=== PATIENT | male | born 1955 | race African-American/Black ===

== ENCOUNTER 2019-01-24 08:36 | Day surgery (SDC) | payer BC, OTHER ==
[~2019-01-24] VITALS: Ht 172.7 cm; Wt 80.7 kg
[~2019-01-24 08:36] MED LIST: AMLO5TAB6 PO; HCTZ PO; HYDR25TAB PO; NS 1,000 ML IV ONE; OMEP40CA2 PO
[2019-01-24] MEDS ORDERED: PROPOFOL 200 MG/20 ML VIAL As Ordered ONE (10:33)
[2019-01-24] MEDS ORDERED: LIDOCAINE 2% INJ 100 MG/5 ML SDV (FOR ANES.) As Ordered ONE (10:33)
--- NOTE | 2019-01-24 11:13 | ROOR ---
Patient Name: Baron Browning Procedure Date: 01/24/2019 10:27 AM Date of : 1955 Age: 63 Room: [facility] Gender: Male Note Status: Finalized Procedure: Colonoscopy Indications: High risk colon cancer surveillance: Personal history of colonic polyps Providers: Tommie Browning MD Referring MD: GABRIEL FLULER MD Requesting Provider: Medicines: Monitored Anesthesia Care Complications: No immediate complications. Procedure: Pre-Anesthesia Assessment: - Prior to the procedure, a History and Physical was performed, and patient medications and allergies were reviewed. The patient is competent. The risks and benefits of the procedure and the sedation options and risks were discussed with the patient. All questions were answered and informed consent was obtained. Patient identification and proposed procedure were verified by the physician, the nurse and the anesthesiologist in the procedure room. Mental Status Examination: alert and oriented. Airway Examination: normal oropharyngeal airway and neck mobility. Respiratory Examination: clear to auscultation. CV Examination: normal. Prophylactic Antibiotics: The patient does not require prophylactic antibiotics. Prior Anticoagulants: The patient has taken no previous anticoagulant or antiplatelet agents. ASA Grade Assessment: II - A patient with mild systemic disease. After reviewing the risks and benefits, the patient was deemed in satisfactory condition to undergo the procedure. The anesthesia plan was to use monitored anesthesia care (MAC). Immediately prior to administration of medications, the patient was re-assessed for adequacy to receive sedatives. The heart rate, respiratory rate, oxygen saturations, blood pressure, adequacy of pulmonary ventilation, and response to care were monitored throughout the procedure. The physical status of the patient was re-assessed after the procedure. The Colonoscope was introduced through the anus and advanced to the cecum, identified by appendiceal orifice and ileocecal valve. The colonoscopy was performed without difficulty. The patient tolerated the procedure well. The quality of the bowel preparation was good. Findings: Hemorrhoids were found on perianal exam. Three pedunculated polyps were found in the descending colon, transverse colon and ascending colon. The polyps were 1 to 10 mm in size. These polyps were removed with a hot snare. Resection and retrieval were complete. Estimated blood loss was minimal. Non-bleeding internal hemorrhoids were found during retroflexion. The hemorrhoids were Grade II (internal hemorrhoids that prolapse but reduce spontaneously). No additional abnormalities were found on retroflexion. Impression: - Hemorrhoids found on perianal exam. - Three 1 to 10 mm polyps in the descending colon, in the transverse colon and in the ascending colon, removed with a hot snare. Resected and retrieved. - Non-bleeding internal hemorrhoids. Recommendation: - Discharge patient to home (ambulatory). - Advance diet as tolerated. - Repeat colonoscopy in 3 years for surveillance. Tommie Browning MD Tommie Browning MD 01/24/2019 11:13:08 AM Electronically signed by Tommie Browning MD Number of Addenda: 0 Note Initiated On: 01/24/2019 10:27 AM Estimated Blood Loss: Estimated blood loss was minimal.
[2019-01-24 11:30] VITALS: BP 160/95
== END 2019-01-24 11:43 | disposition home or self-care (01) ==
LOC: M OPP 08:36
PROVIDERS: ATTEND Surgery
DX: D12.4 Benign neoplasm of descending colon (principal); D12.3 Benign neoplasm of transverse colon; D12.2 Benign neoplasm of ascending colon; K64.1 Second degree hemorrhoids; Z86.010 Personal history of colon polyps

== ENCOUNTER → 2019-07-27 | Outpatient (REF) | payer OTHER ==
[~2019-07-27] MED LIST changes: -NS 1,000 ML IV ONE; -OMEP40CA2 PO; +OMEP40CA97 PO
[2019-08-03 00:07] LABS: CREATININE RANDOM URINE 115.3 mg/dL (Not Estab.); VMA CREAT RATIO RANDOM UR 2.6 mg/g Creat (0.0-6.0)
== END ==
LOC: M LAB REF 12:46
PROVIDERS: ATTEND Internal Medicine Nephrology
DX: I12.9 Hypertensive chronic kidney disease with stage 1 through stage 4 chronic kidney disease, or unspecified chronic kidney disease (principal)

== ENCOUNTER → 2019-08-09 | Outpatient (CLI) | payer BC, OTHER ==
--- NOTE | 2019-08-10 11:04 | REP ---
Clinical: Chronic renal disease . Technique: Real time dunham scale and color evaluation using curved array transducer. Findings: Bladder is normal in appearance and without wall thickening or mass lesion. Bilateral ureteral jets are identified. Prevoid bladder measures 7.1 x 8.1 x 6.8 cm (255 ml). Postvoid bladder measures 2.2 x 2.7 x 1.6 cm (6 ml). Postvoid residual equals 2%. Heterogeneous prostate gland measures 3.9 x 3.4 x 4.8 cm (33 ml). Impression: Normal bladder ultrasound. Electronically Signed by Santiago Blanton MD 08/10/2019 10:55 A
--- NOTE | 2019-08-10 11:10 | REP ---
Clinical: Hypertension and chronic medical renal disease. Technique: Ng scale and color Doppler evaluation of the kidneys and renal vasculature using curved array transducer. Findings: The kidneys are essentially normal in contour size and echogenicity and reniform shape without hydronephrosis, nephrolithiasis, cystic or renal mass lesion. Right kidney measures 10.7 x 4.9 x 4.6 cm and includes 3.8 x 3.1 x 2.8 cm peripelvic cyst. Left kidney measures 10.1 x 4.0 x 4.6 cm and includes 2.0 x 1.2 x 1.0 cm lower pole cyst. Bladder is incompletely distended and grossly normal by current evaluation. Color Doppler evaluation of the renal vasculature demonstrates normal arterial wave patterns, velocities, renal aortic ratios, resistive indices and the acceleration time. No sonographic evidence for renal arterial stenosis noted. Renal vein is patent. Right Kidney: Peak arterial velocity: 62 cm/sec . Renal aortic ratio: 1.2 . Resistive indices: 0.61 - 0.66 . Acceleration times: 0.040 - 0.048 . Left kidney: Peak arterial velocity: 58 cm/sec . Renal aortic ratio: 1.1 . Resistive indices: 0.62 - 0.71 . Acceleration times: 0.042 - 0.052 . Impression: 1. Solitary cysts noted to the bilateral kidneys. 2. No definite evidence for renal arterial stenosis. Limited evaluation of the left main renal artery at the origin due to interposed bowel gas. Electronically Signed by Santiago Blanton MD 08/10/2019 11:01 A
== END ==
LOC: M RAD 06:34
PROVIDERS: ATTEND Internal Medicine Nephrology
DX: N28.1 Cyst of kidney, acquired (principal); N18.3 Chronic kidney disease, stage 3 (moderate); I12.9 Hypertensive chronic kidney disease with stage 1 through stage 4 chronic kidney disease, or unspecified chronic kidney disease; N25.81 Secondary hyperparathyroidism of renal origin

== ENCOUNTER → 2019-08-25 | Outpatient (REF) | payer OTHER | LOC: M LAB REF 12:43 | PROVIDERS: ATTEND Internal Medicine Nephrology | DX: I12.9 Hypertensive chronic kidney disease with stage 1 through stage 4 chronic kidney disease, or unspecified chronic kidney disease (principal) ==

== ENCOUNTER → 2021-04-24 | Outpatient (CLI) | payer BC, OTHER ==
[~2021-04-24] MED LIST changes: +AMLO1TAB24 PO; -AMLO5TAB6 PO; +HYDR-3490 PO; -HYDR25TAB PO; +OMEP40CA4 PO; -OMEP40CA97 PO
--- NOTE | 2021-04-24 15:33 | REP ---
INDICATION: GROSS HEMATURIA. COMPARISON: None. TECHNIQUE: PA and lateral. FINDINGS: The lungs are marginally adequate in the degree of inflation. There is curvilinear fibrotic or atelectatic change at the left base just above the diaphragm. No pleural effusion or dense consolidation. Parenchymal mass pulmonary nodule visible. The heart is not enlarged the aorta is tortuous but without gross aneurysm. Airway is midline. There is no mediastinal or hilar contour abnormality or mass. Bony thorax shows no acute compression deformity or focal lesion. Visualized clavicles, shoulders and ribs grossly intact. No free air under the diaphragm. IMPRESSION: Some minor basilar fibroatelectatic change left base without acute cardiopulmonary change. <Electronically signed by Ramón Domingo > 04/24/21 [id number]
== END ==
LOC: M WUC 14:09
PROVIDERS: ATTEND Urology
DX: R31.0 Gross hematuria (principal)

== ENCOUNTER → 2021-04-25 | Outpatient (CLI) | payer OTHER | LOC: M LABSMTC 11:43 | PROVIDERS: ATTEND Anesthesiology | DX: Z20.828 Contact with and (suspected) exposure to other viral communicable diseases (principal); Z11.59 Encounter for screening for other viral diseases ==

== ENCOUNTER 2021-04-30 07:33 | Day surgery (SDC) | payer BC, OTHER ==
[~2021-04-30] VITALS: Ht 172.7 cm; Wt 76.1 kg
[~2021-04-30 07:33] MED LIST changes: +CIPROFLOXACIN 400 MG in IV 1 EA IV ONE
[2021-04-30] MEDS ORDERED: ONDANSETRON 4MG/2ML VIAL As Ordered ONE (08:19)
[2021-04-30] MEDS ORDERED: KETOROLAC 60MG 2ML VIAL As Ordered ONE (08:19)
[2021-04-30] MEDS ORDERED: ROCURONIUM BROMIDE 50 MG/5 ML VIAL As Ordered ONE (08:19)
[2021-04-30] MEDS ORDERED: ACETAMINOPHEN 1000MG 100ML IV BTL (OFIRMEV) (J0131 PER 10MG) As Ordered ONE (08:19)
[2021-04-30] MEDS ORDERED: dexameTHASONE 4 MG/ML 1ML VIAL (J1100 PER 1MG) As Ordered ONE (08:19)
[2021-04-30] MEDS ORDERED: SUGAMMADEX SODIUM 500 MG/5 ML VIAL (BRIDION) As Ordered ONE (08:19)
[2021-04-30] MEDS ORDERED: LIDOCAINE 2% 100MG/5ML SDV (FOR ANES.) As Ordered ONE (08:19)
[2021-04-30] MEDS ORDERED: propofoL 200 MG/20 ML VIAL As Ordered ONE (08:19)
[2021-04-30] MEDS ORDERED: fentaNYL 100 MCG/2 ML INJECTION (J3010) As Ordered ONE ×2 (08:20→11:02)
[2021-04-30] MEDS ORDERED: MIDAZOLAM INJ 2MG/2ML VIAL (J2250 PER 1MG) As Ordered ONE (08:20)
[2021-04-30] MEDS ORDERED: CONRAY-60 60% 50ML VIAL (Q9961) As Ordered ONE (10:09)
--- NOTE | 2021-04-30 11:01 | REP ---
INDICATION: BILATERAL STENT PLACEMENT. COMPARISON: None. TECHNIQUE: Five views. 26.8 seconds of fluoroscopy time is reported. FINDINGS: A sequence of 5 last image hold fluoroscopically obtained spot radiographs of the abdomen document bilateral ureteral cannulation, contrast injection, and double-pigtail stent placement. IMPRESSION: Procedural imaging. <Electronically signed by Jermain Bustillos > 04/30/21 [id number]
[2021-04-30] MEDS ORDERED: FUROSEMIDE 100MG/10ML VIAL (J1940) As Ordered ONE (11:04)
[2021-04-30] MEDS ORDERED: OXYC1TAB23 PO (11:46)
[2021-04-30] MEDS ORDERED: ONDANSETRON 4MG/2ML VIAL IV PRN (11:50)
[2021-04-30] MEDS ORDERED: MEPERIDINE INJ 25 MG/ML VIAL (J2175) IV PRN (11:50)
[2021-04-30] MEDS ORDERED: oxyCODONE 5MG TAB PO PRN (11:50)
[2021-04-30] MEDS ORDERED: PERCOCET 5MG/325MG TAB PO PRN (11:50)
[2021-04-30] MEDS ORDERED: LR 1,000 ML IV SCH (11:50)
[2021-04-30] MEDS ORDERED: fentaNYL 100 MCG/2 ML INJECTION (J3010) IV PRN (11:50)
--- NOTE | 2021-04-30 12:09 | RO ---
OPERATIVE NOTE DATE OF OPERATION: 04/30/2021 PREOPERATIVE DIAGNOSIS: Bladder tumor. POSTOPERATIVE DIAGNOSIS: Bladder tumor, prostatic urethral tumor. PROCEDURE: Cystoscopy, transurethral resection of bladder and prostatic urethral tumors (greater than 5 cm), bilateral retrograde pyelograms with intraop interpretation of images, bilateral ureteral stent placement, examination under anesthesia. SURGEON: Wesley Carrero MD OFFICE NURSE PRACTITIONER: None. ANESTHESIA: General. OPERATIVE INDICATIONS: This is a 65-year-old male who was found to have what appeared to be a bladder tumor near the triangle on office cystoscopy. He was brought to the operating room today for treatment. DESCRIPTION OF PROCEDURE: The patient was brought to the operating room and general anesthesia induced. Prophylactic antibiotics were infused. He was then placed in the dorsal lithotomy position. A bimanual digital rectal examination under anesthesia was performed. It was notable for approximately 40 gm prostate with no nodules or induration. The bladder was freely mobile. The patient was prepped and draped in usual sterile fashion. A resectoscope was inserted in the urethral meatus and advanced into the bladder using a visual obturator. Once inside the bladder it was thoroughly examined. Of note, the patient had what appeared to be tumor occupying the entire trigone and both ureteral orifices. There appeared to be more tumor at the bladder neck and inside the prostatic urethra. At this point I resected all of the tumor inside the bladder using a bipolar loop. I also had to resect over both ureteral orifices. All the tumor from the bladder was then removed using a Urovac evacuator. I cauterized the base of resection but made sure not to cauterize on top of ureteral orifices. I then obtained bilateral retrograde pyelograms and there were no filling defects. There was mild hydronephrosis. I then utilized a guidewire to advance bilateral 7-Filipino x 22-32 cm JJ ureteral stents up into the collecting systems. When the wire was removed there were adequate curls of the stents in both kidneys and in the ureters. Once I made sure all the tumor inside the bladder had been resected, I then started resecting the abnormal-appearing tissue inside the prostatic urethra. This tissue was removed using a Urovac evacuator as well. The resection area base had been cauterized using coagulation current. Of note, there was an extensive amount of tumor in both the bladder and prostatic urethra and it is possible there is still additional tumor specifically inside the prostatic urethra. Once I was satisfied with hemostasis the resectoscope was removed and 18-Filipino Noriega catheter was inserted in the bladder. The balloon was filled with 10 mL sterile water and the catheter was connected to gravity drainage. The patient was taken out of dorsal lithotomy position, awakened from anesthesia and transported to the recovery room in stable condition. ESTIMATED BLOOD LOSS: 10 mL. COMPLICATIONS: None. SPECIMEN: Bladder tumor, tumor of prostatic urethra. PLAN: The patient will follow up in the clinic in approximately one week for catheter removal and a voiding trial. We will discuss the pathology results. 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 Either way he is going to need additional treatment. We will take his stents out in a few weeks. MERLIN
[2021-04-30 14:00] VITALS: BP 133/76
== END 2021-04-30 14:27 | disposition home or self-care (01) ==
LOC: M SDC 07:33
PROVIDERS: ATTEND Urology
DX: C61 Malignant neoplasm of prostate (principal); I10 Essential (primary) hypertension; Z79.899 Other long term (current) drug therapy; Z85.51 Personal history of malignant neoplasm of bladder
CPT/HCPCS: 52240; 52332; 74420; 88305; 88307; 88341; 88342; C1769; C2617; J0131; J0744; J1100; J1885; J1940; J2250; J2405; J3010; Q9961

== ENCOUNTER → 2021-05-06 | Outpatient (CLI) | payer BC, OTHER ==
[~2021-05-06] MED LIST changes: -CIPROFLOXACIN 400 MG in IV 1 EA IV ONE; +FIRM120I5 SC; +LUPR45IN IM; +OXYC1TAB23 PO; +VITA200016 PO; +eligard SUBQ
[2021-05-06 16:18] LABS: CALCIUM LEVEL 9.3 MG/DL (8.8-10.2); CREATININE FOR GFR 2.02 MG/DL (0.70-1.30); GLOMERULAR FILTRATION RATE 35.2 (>49); POTASSIUM SERUM 4.6 MEQ/L (3.5-5.1)
== END ==
LOC: M PLALAB 11:44
PROVIDERS: ATTEND Nurse Practitioner Women's Health
DX: C61 Malignant neoplasm of prostate (principal)

== ENCOUNTER → 2021-06-03 | Outpatient (CLI) | payer BC, OTHER | LOC: M PLALAB 14:35 | PROVIDERS: ATTEND Urology | DX: C61 Malignant neoplasm of prostate (principal) ==

== ENCOUNTER 2021-07-01 15:30 | Inpatient (IN) | payer BC, OTHER ==
[~2021-07-01] VITALS: Ht 170.2 cm; Wt 66.6 kg
[~2021-07-01 15:30] MED LIST changes: -VITA200016 PO; -eligard SUBQ
[2021-07-01] MEDS ORDERED: eligard SUBQ (16:14)
[2021-07-01] MEDS ORDERED: NS 1,000 ML IV SCH (17:20)
[2021-07-01 18:24] LABS: BASO % 0.5 % (0.0-1.0); HEMATOCRIT 48.9 % (42.0-52.0); HEMOGLOBIN 16.5 g/dl (13.5-17.5); LYMPH # 0.9 10^3/uL (1.5-5.0); LYMPH % 14.1 % (24.0-44.0); MEAN CORPUSCULAR HEMOGLOBIN 31.9 pg (27.0-33.0); MEAN CORPUSCULAR HGB CONC 33.7 g/dl (32.0-36.5); MEAN CORPUSCULAR VOLUME 94.4 fl (80.0-96.0); MONO # 0.9 10^3/uL (0.0-0.8); MONO % 13.5 % (2.0-8.0); NEUTROPHILS # 4.5 10^3/uL (1.5-8.5); NEUTROPHILS % 70.5 % (36.0-66.0); PLATELET COUNT, AUTOMATED 257 10^3/uL (150-450); RED BLOOD COUNT 5.18 10^6/uL (4.30-6.10); WHITE BLOOD COUNT 6.4 10^3/uL (4.0-10.0)
[2021-07-01 18:38] LABS: ALBUMIN 3.8 GM/DL (3.2-5.2); BILIRUBIN,DIRECT 0.6 MG/DL (0.0-0.2); BILIRUBIN,TOTAL 1.9 MG/DL (0.2-1.0); CALCIUM LEVEL 10.3 MG/DL (8.8-10.2); CREATININE FOR GFR 2.91 MG/DL (0.70-1.30); GLOMERULAR FILTRATION RATE 23.1 (>49); MAGNESIUM LEVEL 2.5 MG/DL (1.8-2.4); PHOSPHORUS LEVEL 5.7 MG/DL (2.5-4.9); POTASSIUM SERUM 4.8 MEQ/L (3.5-5.1); TOTAL PROTEIN 9.2 GM/DL (6.4-8.2); URIC ACID 11.4 MG/DL (3.5-7.2)
[2021-07-01 18:45] LABS: RSV AMPLIFICATION NEGATIVE (NEGATIVE)
--- NOTE | 2021-07-01 19:24 | REPVR ---
PROCEDURE INFORMATION: Exam: CT Abdomen And Pelvis Without Contrast Exam date and time: 07/01/2021 6:37 PM Age: 65 years old Clinical indication: Other: Arf; Additional info: Renal failure TECHNIQUE: Imaging protocol: Computed tomography of the abdomen and pelvis without contrast. Radiation optimization: All CT scans at this facility use at least one of these dose optimization techniques: automated exposure control; mA and/or kV adjustment per patient size (includes targeted exams where dose is matched to clinical indication); or iterative reconstruction. COMPARISON: BLADDER (LIMITED PELVIC) US 08/09/2019 8:16 AM FINDINGS: Lungs: Bibasilar atelectasis. Liver: Normal. No mass. Gallbladder and bile ducts: Normal. No calcified stones. No ductal dilation. Pancreas: Normal. No ductal dilation. Spleen: Normal. No splenomegaly. Adrenal glands: Normal. No mass. Kidneys and ureters: 4.2 cm simple cyst right kidney. No follow-up suggested. No hydronephrosis. Stomach and bowel: Mild diverticulosis is present in the distal colon. No diverticulitis. Appendix: No evidence of appendicitis. Intraperitoneal space: Unremarkable. No free air. No significant fluid collection. Vasculature: Unremarkable. No abdominal aortic aneurysm. Lymph nodes: Unremarkable. No enlarged lymph nodes. Urinary bladder: Unremarkable as visualized. Reproductive: The prostate gland demonstrates mild hyperplasia. Bones/joints: Small sclerotic focus left 5th rib. Retrolisthesis of L5 with respect L4 and S1. Moderate to severe central spinal stenosis L4-L5. Bulging annulus L5-S1 without spinal stenosis. Soft tissues: There is a small umbilical hernia. There is no evidence of incarceration. IMPRESSION: 1. Mild prostatic hyperplasia. 2. Mild diverticulosis is present in the distal colon. No diverticulitis. 3. Simple cyst right kidney. Otherwise unremarkable. No hydronephrosis. COMMENTS: Consistent with the [place] [employer]'s Incidental Findings Committee white paper (J Am Juan Radiol 2018): Any incidental renal lesion less than 1 cm or classified as too small to characterize, or any incidental cystic renal lesion characterized as simple-appearing, is likely benign. No follow-up imaging is recommended for these lesions per consensus recommendations based on imaging criteria. Electronically signed by: Fred Forman On 07/01/2021 19:23:57 PM
[2021-07-01] MEDS: NS 1,000 ML IV SCH ×2 (19:35→23:12)
[2021-07-01] MEDS ORDERED: MAALOX 30 ML SUSP *UDC PO PRN (19:35)
[2021-07-01] MEDS ORDERED: ACETAMINOPHEN TAB 650MG DOSE (2X325MG) PO PRN (19:35)
[2021-07-01] MEDS ORDERED: MOM 30ML SUSPENSION UDC PO PRN (19:35)
--- NOTE | 2021-07-01 20:07 | HPEPDOC ---
[facility] Medical History & Physical Date of Admission Jul 01, 2021 Date of Service: Jul 01, 2021 Attending Physician: ROSETTA KELLY MD History and Physical CHIEF COMPLAINT: [65 y/o male c/o fatigue] HISTORY OF PRESENT ILLNESS: [This is a 65 y/o male with a pmh of htn, ckd3 and metastatic prostate ca who presents to the ED for evaluation of fatigue and weakness x1 month after beginning new hormonal therapy for his prostate ca as well as abnormal kidney function on lab work approx 1 week ago. Patient is somewhat agitated during my exam and provides very little history to me, thus most of the history is taken from chart and ED staff. Apparently, patient was started on leupron and firmagon for his metastatic prostate cancer and subsequently developed poor appetite. Patient has apparently not been eating and becoming increasingly weak and fatigued. Patient had an appointment with pcp approx 1 week ago where blood work was drawn showing declining kidney function, however patient did not make follow-up appointment and was told to present to the ED for evaluation. Patient tells me that he has been experiencing weakness and fatigue for approx 1 month with associated dizziness. Patient denies recent illness, fevers, chills, chest pain, sob. Patient incidentally found to be covid+ in our ED as well as have acute kidney injury. ] PAST MEDICAL HISTORY: 1. [See HPI PAST SURGICAL HISTORY: 1. [colonoscopy and polypectomy]. 2. [turp]. SOCIAL HISTORY: Tobacco use:[denies] ETOH: [denies] Illicit drug use: [denies] FAMILY HISTORY: Reviewed - none pertinent ALLERGIES: Please see below. REVIEW OF SYSTEMS: CONSTITUTIONAL: [See HPI]. HEENT: [Denies uri sx]. CARDIOVASCULAR: [Denies chest pain]. RESPIRATORY: [Denies sob]. GASTROINTESTINAL: [Denies abd pain]. GENITOURINARY: [Denies dysuria]. SKIN: [Denies rash]. MUSCULOSKELETAL: [Denies acute joint/back pain]. NEUROLOGICAL: [Denies syncope. Admits to lightheadedness]. ENDOCRINE: [Denies hx of DM]. HEMATOLOGIC/LYMPHATIC: [Denies hx of vte]. HOME MEDICATIONS: Please see below. PHYSICAL EXAMINATION: VITAL SIGNS: Please see below. GENERAL APPEARANCE: [This is a 65 y/o male who appears his stated age. Patient is laying in bed with his eyes closed and answers questions with one word answers. he does not appear to be in any acute distress]. HEENT: [No mass or lesion. Nares patent. oral mucosa dry]. CARDIOVASCULAR: [Regular rate, rhythm. no murmurs, rubs, gallops]. LUNGS: [Good air flow b/l. No wheezing, rales, rhonchi]. ABDOMEN: [Soft, nontender]. MUSCULOSKELETAL: [No joint deformity noted]. EXTREMITIES: [No pedal edema appreciated. Pulses intact. No overlying skin changes]. NEUROLOGICAL: [Speech clear. A+Ox3. No focal deficits]. PSYCHIATRIC: [Mood and affect appropriate]. LABORATORY DATA: See below. IMAGING: [CT Abd/pelvis: FINDINGS: Lungs: Bibasilar atelectasis. Liver: Normal. No mass. Gallbladder and bile ducts: Normal. No calcified stones. No ductal dilation. Pancreas: Normal. No ductal dilation. Spleen: Normal. No splenomegaly. Adrenal glands: Normal. No mass. Kidneys and ureters: 4.2 cm simple cyst right kidney. No follow-up suggested. No hydronephrosis. Stomach and bowel: Mild diverticulosis is present in the distal colon. No diverticulitis. Appendix: No evidence of appendicitis. Intraperitoneal space: Unremarkable. No free air. No significant fluid collection. Vasculature: Unremarkable. No abdominal aortic aneurysm. Lymph nodes: Unremarkable. No enlarged lymph nodes. Urinary bladder: Unremarkable as visualized. Reproductive: The prostate gland demonstrates mild hyperplasia. Bones/joints: Small sclerotic focus left 5th rib. Retrolisthesis of L5 with respect L4 and S1. Moderate to severe central spinal stenosis L4-L5. Bulging annulus L5-S1 without spinal stenosis. Soft tissues: There is a small umbilical hernia. There is no evidence of incarceration. IMPRESSION: 1. Mild prostatic hyperplasia. 2. Mild diverticulosis is present in the distal colon. No diverticulitis. 3. Simple cyst right kidney. Otherwise unremarkable. No hydronephrosis. ] MICROBIOLOGY: Please see below. ASSESSMENT: [This is a 65 y/o male with a pmh of htn, ckd3 and metastatic prostate ca who presents to the ED for evaluation of fatigue and weakness x1 month after beginning new hormonal therapy for his prostate ca as well as abnormal kidney function on lab work approx 1 week ago. Patient incidentally found to be covid+ in our ED as well as have acute kidney injury.] . PLAN: 1. [SHEILA on CKD3 - cr acutely elevated to 2.91 from baseline of around 2 - most likely pre-renal in nature d/t poor oral intake after beginning new chemotherapy regimen which is depot injectables degarelix and eligard - team can reach out to patients urologist and/or oncologist in the am if so desired for recommendations such as need for appetite stimulants. Patient follows with both specialties in house. - CT abd/pelvis negative for any obstruction - ua, urine electrolytes ordered - will give ivf overnight - repeat kidney function in the AM 2. COVID19 - incidental finding - patient having no hypoxia, - team can consider monoclonal ab infusion prior to discharge 3. Dehydration - patient has many electrolyte abnormalities such as hypercalcemia of 10.3, hyperphosphatemia of 5.7 and hypermagnesemia of 2.5 - patient also with elevated bilirubin of 1.9 and lipase of 986 - patient showing no signs or symptoms of any of these electrolyte abnormalities or abdominal pain - lab abnormalities likely d/t dehydration - will repeat in the am post iv fluid hydration 4. HTN - at the time of writing this note, med rec is yet to be completed. Will restart at home medications based on nephrotoxicity. DVT prophylaxis - heparin d/t kidney function]. Vital Signs Vital Signs Date Time Temp Pulse Resp B/P (MAP) Pulse Ox O2 Delivery O2 Flow Rate FiO2 07/01/21 15:31 97.4 65 18 137/96 (110) 96 Room Air Laboratory Data Labs 24H Laboratory Tests 2 07/01/21 17:38: Immature Granulocyte % (Auto) 1.4, Neutrophils (%) (Auto) 70.5H, Lymphocytes (%) (Auto) 14.1L, Monocytes (%) (Auto) 13.5H, Eosinophils (%) (Auto) 0.0, Basophils (%) (Auto) 0.5, Neutrophils # (Auto) 4.5, Lymphocytes # (Auto) 0.9L, Monocytes # (Auto) 0.9H, Eosinophils # (Auto) 0.0, Basophils # (Auto) 0.0, Nucleated Red Blood Cells % (auto) 0.0, Activated Partial Thromboplast Time 24.1L, Anion Gap 11, Glomerular Filtration Rate 23.1L, Osmolality 323H, Uric Acid 11.4H, Calcium Level 10.3H, Phosphorus Level 5.7H, Magnesium Level 2.5H, Total Bilirubin 1.9H, Direct Bilirubin 0.6H, Aspartate Amino Transf (AST/SGOT) 59H, Alanine Aminotransferase (ALT/SGPT) 54, Alkaline Phosphatase 43L, Total Creatine Kinase 98, Total Protein 9.2H, Albumin 3.8, Albumin/Globulin Ratio 0.7, Lipase 986H, Coronavirus (COVID-19)(PCR) POSITIVEA, Influenza Type A (RT-PCR) NEGATIVE, Influenza Type B (RT-PCR) NEGATIVE, Respiratory Syncytial Virus (PCR) NEGATIVE 07/01/21 18:07: POC Glucose (Misc Panel) 134H, POC Sodium (Misc Panel) 143, POC Potassium (Misc Panel) 4.3, POC Chloride (Misc Panel) 106, POC Total CO2 (Misc Panel) 26.0, POC Blood Urea Nitrogen (Misc Panel 73H, POC Ionized Calcium (Misc Panel) 4.6, POC Creatinine (Misc Panel) 3.2H, POC Hematocrit (Misc Panel) 50.0 CBC/BMP Laboratory Tests 07/01/21 17:38 Home Medications Scheduled Amlodipine Besylate (Amlodipine Besylate) 5 Mg Tablet, 5 MG PO DAILY Hydrochlorothiazide (Hydrochlorothiazide) 25 Mg Tablet, 12.5 MG PO DAILY Miscellaneous Medications Degarelix Acetate (Firmagon) 120 Mg Vial, 240 MG SC Leuprolide Acetate (Lupron Depot) 45 Mg Syringekit, 45 MG IM [eligard] , 45 MG SUBQ Allergies Coded Allergies: No Known Allergies (Unverified , 04/28/21) A-FIB/CHADSVASC A-FIB History Current/History of A-Fib/PAF?: No FRANK CAPUTO Jul 01, 2021 20:07
[2021-07-01 20:43] LABS: INR 0.94
[2021-07-01 20:44] LABS: PARTIAL THROMBOPLASTIN TIME 25.7 SECONDS (25.9-37.0)
[2021-07-01] MEDS: DOCUSATE SODIUM 100MG CAPSULE PO SCH (21:00)
[2021-07-01 22:30] VITALS: BP 145/65
[2021-07-01] MEDS: HEPARIN SOD (PORCINE) 5000UNITS/ML 1ML VIAL/SYRINGE SC SCH (23:11)
[2021-07-02 05:39] VITALS: BP 121/86
[2021-07-02] MEDS ORDERED: VITA200016 PO (06:27)
[2021-07-02] MEDS ORDERED: HOME MED LIST COMPLETE! XX SCH (06:30)
[2021-07-02 06:36] LABS: BASO % 0.4 % (0.0-1.0); HEMATOCRIT 44.3 % (42.0-52.0); LYMPH # 1.4 10^3/uL (1.5-5.0); LYMPH % 18.2 % (24.0-44.0); MEAN CORPUSCULAR HEMOGLOBIN 31.7 pg (27.0-33.0); MEAN CORPUSCULAR HGB CONC 33.9 g/dl (32.0-36.5); MEAN CORPUSCULAR VOLUME 93.7 fl (80.0-96.0); MONO # 1.1 10^3/uL (0.0-0.8); MONO % 14.4 % (2.0-8.0); NEUTROPHILS % 66.2 % (36.0-66.0); PLATELET COUNT, AUTOMATED 198 10^3/uL (150-450); RED BLOOD COUNT 4.73 10^6/uL (4.30-6.10); WHITE BLOOD COUNT 7.6 10^3/uL (4.0-10.0)
[2021-07-02 06:55] LABS: BILIRUBIN,TOTAL 1.5 MG/DL (0.2-1.0); CALCIUM LEVEL 9.3 MG/DL (8.8-10.2); CREATININE FOR GFR 2.51 MG/DL (0.70-1.30); GLOMERULAR FILTRATION RATE 27.4 (>49); MAGNESIUM LEVEL 2.4 MG/DL (1.8-2.4); PHOSPHORUS LEVEL 4.2 MG/DL (2.5-4.9); POTASSIUM SERUM 3.8 MEQ/L (3.5-5.1); TOTAL PROTEIN 8.1 GM/DL (6.4-8.2)
[2021-07-02 06:55] LABS: TOTAL PROTEIN,RANDOM URINE 225.6 MG/DL (0.0-12.0)
[2021-07-02] MEDS: DOCUSATE SODIUM 100MG CAPSULE PO SCH ×2 (09:00→21:15)
[2021-07-02] MEDS: HEPARIN SOD (PORCINE) 5000UNITS/ML 1ML VIAL/SYRINGE SC SCH ×3 (09:32→21:15)
--- NOTE | 2021-07-02 11:09 | IPNPDOC ---
Subjective Date Seen The patient was seen on 07/02/21. Subjective Chief Complaint/HPI Patient was seen and examined at bedside this morning. He was asked who sent him to the hospital but he refused to answer the question, and reported "everyone already asked". He was explained that this would help to treat him, or at least answer who had sent him but he refused to answer. He was asked if he had any symptoms including chest pain, palpitations, abdominal pain, nausea, vomiting, problem with urination and bowel movements, he replied " no". He was also asked if he would want monoclonal antibodies, to which he replied " no". His primary care physician, Dr. Tong, was contacted. The reason he was sent to the emergency room department was because of concerns of possible Covid and acute on chronic kidney disease. Objective Physical Examination Other physical findings General: Lying in bed, no acute distress Head/Neck/Throat: Trachea midline, mucous membranes moist Eyes: Sclera anicteric, PERRLA Thorax: Normal respiratory effort on room air, lungs clear to auscultation bi laterally, no wheezes/rales/rhonchi Cardiovascular: Normal rate, regular rhythm, normal S1, S2; no S3, S4, rubs/gallops/murmurs Abdomen: Bowel sounds present, soft/nontender/nondistended Genitourinary: No CVA tenderness, no Noriega in place Musculoskeletal: Moving all extremities, no edema Skin: Warm, dry Neurologic: AAOx3, speech fluent and goal-directed, no focal deficits, grossly intact Assessment /Plan Assessment #Acute on chronic kidney disease -Creatinine on 05/06 was 2.0 mg/dL. Likely poor po intake from prostate ca rx. -improving with IVF -Avoid nephrotoxic medications -Ct abd and and pelvis showed no obstruction #COVID-19 -No signs of respiratory depression, tolerating room air well -Patient was asked about receiving monoclonal antibodies, but he refused #Elevated lipase -Benign abdomen, low suspicion for pancreatitis. This can be seen in the setting of Covid. -We will continue to trend #Transaminitis -Slight elevation in his AST and alkaline phosphatase. This can also be due to COVID-19. -Can have liver u/s as outpatient #Prostate carcinoma -Continued management as an outpatient with primary oncologist #Hypertension -Blood pressure at this time is acceptable. If required will continue ambulatory amlodipine. Hold hydrochlorothiazide in the setting of acute renal failure #Electrolyte abnormalities -Hypokalemia likely due to IV fluids -Calcium, phosphorus, and magnesium are all within normal limits #DVT prophylaxis -Hep subq. Plan/VTE VTE Prophylaxis Ordered?: Yes VS, I&O, 24H, Fishbone Vital Signs/I&O Vital Signs Date Time Temp Pulse Resp B/P (MAP) Pulse Ox O2 Delivery O2 Flow Rate FiO2 07/02/21 05:39 98.4 72 18 121/86 (98) 94 Room Air I&O- Last 24 Hours up to 6 AM 07/02/21 06:00 Intake Total 260 ml Output Total 150 ml Balance 110 ml Laboratory Data 24H LABS Laboratory Tests 2 07/01/21 17:38: Immature Granulocyte % (Auto) 1.4, Neutrophils (%) (Auto) 70.5H, Lymphocytes (%) (Auto) 14.1L, Monocytes (%) (Auto) 13.5H, Eosinophils (%) (Auto) 0.0, Basophils (%) (Auto) 0.5, Neutrophils # (Auto) 4.5, Lymphocytes # (Auto) 0.9L, Monocytes # (Auto) 0.9H, Eosinophils # (Auto) 0.0, Basophils # (Auto) 0.0, Nucleated Red Blood Cells % (auto) 0.0, Activated Partial Thromboplast Time 24.1L, Anion Gap 11, Glomerular Filtration Rate 23.1L, Osmolality 323H, Uric Acid 11.4H, Calcium Level 10.3H, Phosphorus Level 5.7H, Magnesium Level 2.5H, Total Bilirubin 1.9H, Direct Bilirubin 0.6H, Aspartate Amino Transf (AST/SGOT) 59H, Alanine Amino transferase (ALT/SGPT) 54, Alkaline Phosphatase 43L, Total Creatine Kinase 98, Total Protein 9.2H, Albumin 3.8, Albumin/Globulin Ratio 0.7, Lipase 986H, Coronavirus (COVID-19)(PCR) POSITIVEA, Influenza Type A (RT-PCR) NEGATIVE, Influenza Type B (RT-PCR) NEGATIVE, Respiratory Syncytial Virus (PCR) NEGATIVE 07/01/21 18:07: POC Glucose (Misc Panel) 134H, POC Sodium (Misc Panel) 143, POC Potassium (Misc Panel) 4.3, POC Chloride (Misc Panel) 106, POC Total CO2 (Misc Panel) 26.0, POC Blood Urea Nitrogen (Misc Panel 73H, POC Ionized Calcium (Misc Panel) 4.6, POC Creatinine (Misc Panel) 3.2H, POC Hematocrit (Misc Panel) 50.0 07/01/21 20:19: Activated Partial Thromboplast Time 25.7, Prothrombin Time 13.0, Prothromb Time International Ratio 0.94 07/02/21 05:36: Urine Osmolality 619, Urine Random Creatinine 157.0, Urine Random Total Protein 225.6H, Urine Random Sodium 20, Urine Random Potassium 45.0 07/02/21 06:06: Immature Granulocyte % (Auto) 0.8, Neutrophils (%) (Auto) 66.2H, Lymphocytes (%) (Auto) 18.2L, Monocytes (%) (Auto) 14.4H, Eosinophils (%) (Auto) 0.0, Basophils (%) (Auto) 0.4, Neutrophils # (Auto) 5.0, Lymphocytes # (Auto) 1.4L, Monocytes # (Auto) 1.1H, Eosinophils # (Auto) 0.0, Basophils # (Auto) 0.0, Nucleated Red Blood Cells % (auto) 0.0, Anion Gap 10, Glomerular Filtration Rate 27.4L, Calci um Level 9.3, Phosphorus Level 4.2#, Magnesium Level 2.4, Total Bilirubin 1.5H, Aspartate Amino Transf (AST/SGOT) 51H, Alanine Aminotransferase (ALT/SGPT) 47, Alkaline Phosphatase 37L, Total Protein 8.1, Albumin 3.0#L, Albumin/Globulin Ratio 0.6, Lipase 1875H CBC/BMP Laboratory Tests 07/01/21 17:38 07/02/21 06:06 ALBERTO NOWAK M.D. Jul 02, 2021 11:09
[2021-07-02 14:00] VITALS: BP 134/89
[2021-07-02] MEDS: NS 1,000 ML IV SCH (14:32)
[2021-07-02 22:00] VITALS: BP 142/89
[2021-07-03 05:28] VITALS: BP 166/91
[2021-07-03] MEDS: HEPARIN SOD (PORCINE) 5000UNITS/ML 1ML VIAL/SYRINGE SC SCH ×3 (06:18→19:58)
[2021-07-03] MEDS: NS 1,000 ML IV SCH ×2 (06:18→09:40)
[2021-07-03 06:59] LABS: HEMATOCRIT 41.1 % (42.0-52.0); HEMOGLOBIN 13.9 g/dl (13.5-17.5); MEAN CORPUSCULAR HEMOGLOBIN 32.2 pg (27.0-33.0); MEAN CORPUSCULAR HGB CONC 33.8 g/dl (32.0-36.5); MEAN CORPUSCULAR VOLUME 95.1 fl (80.0-96.0); PLATELET COUNT, AUTOMATED 209 10^3/uL (150-450); RED BLOOD COUNT 4.32 10^6/uL (4.30-6.10); WHITE BLOOD COUNT 5.9 10^3/uL (4.0-10.0)
[2021-07-03 07:27] LABS: ALBUMIN 2.6 GM/DL (3.2-5.2); BILIRUBIN,TOTAL 1.2 MG/DL (0.2-1.0); CALCIUM LEVEL 8.5 MG/DL (8.8-10.2); CREATININE FOR GFR 2.08 MG/DL (0.70-1.30); GLOMERULAR FILTRATION RATE 34.1 (>49); MAGNESIUM LEVEL 2.1 MG/DL (1.8-2.4); PHOSPHORUS LEVEL 2.9 MG/DL (2.5-4.9); TOTAL PROTEIN 7.3 GM/DL (6.4-8.2)
--- NOTE | 2021-07-03 07:31 | ECGEPIP ---
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
[2021-07-03] MEDS: DOCUSATE SODIUM 100MG CAPSULE PO SCH ×2 (09:00→19:41)
[2021-07-03 15:50] VITALS: BP 145/90
--- NOTE | 2021-07-03 17:16 | IPNPDOC ---
Subjective Date Seen The patient was seen on 07/03/21. Subjective Chief Complaint/HPI Patient seen and examined at bedside this morning. He had no new complaints except for feeling tired. He was explained that his renal function was still abnormal but improving with IV fluids. He did report his appetite is improving and he is tolerating a diet. He denies chest pain, abdominal pain, nausea, vomiting, problems with urination and bowel movements. Overnight no acute events were reported. Objective Physical Examination Other physical findings General: Lying in bed, no acute distress Head/Neck/Throat: Trachea midline, mucous membranes moist Eyes: Sclera anicteric, no erythema or discharge appreciated bilaterally Thorax: Normal respiratory effort on room air, lungs clear to auscultation bilaterally, no wheezes/rales/rhonchi Cardiovascular: Normal rate, regular rhythm, normal S1, S2; no S3, S4, rubs/gallops/murmurs Abdomen: Bowel sounds present, soft/nontender/nondistended Genitourinary: No CVA tenderness, no Noriega in place Musculoskeletal: Moving all extremities, no edema Skin: Warm, dry Neurologic: AAOx3, speech fluent and goal-directed, no focal deficits, grossly intact Assessment /Plan Assessment #Acute on chronic kidney disease -Creatinine on 05/06 was 2.0 mg/dL. Likely poor po intake from prostate ca rx. Appetite is improving. -Continue with IV fluids -Avoid nephrotoxic medications -Ct abd and and pelvis showed no obstruction #COVID-19 -No signs of respiratory depression, tolerating room air well -Patient was asked about receiving monoclonal antibodies, but he refused. He understands the risks and benefits of monoclonal antibodies. #Elevated lipase -Improving. Benign abdomen, low suspicion for pancreatitis. This can be seen in the setting of Covid. -We will continue to trend #Transaminitis -Slight elevation in his AST and alkaline phosphatase. This can also be due to COVID-19. -Can have liver u/s as outpatient #Prostate carcinoma -Continued management as an outpatient with primary oncologist #Hypertension -Blood pressure at this time is acceptable. If required will continue ambulatory amlodipine. Hold hydrochlorothiazide in the setting of acute renal failure #Electrolyte abnormalities -Hyperchloremic, will switch normal saline to LR. #DVT prophylaxis -Hep subq. Plan/VTE VTE Prophylaxis Ordered?: Yes VS, I&O, 24H, Fishbone Vital Signs/I&O Vital Signs Date Time Temp Pulse Resp B/P (MAP) Pulse Ox O2 Delivery O2 Flow Rate FiO2 07/03/21 15:50 100.4 71 16 145/90 (108) 97 Room Air I&O- Last 24 Hours up to 6 AM 07/03/21 06:00 Intake Total 1510 ml Output Total 1475 ml Balance 35 ml Laboratory Data 24H LABS Laboratory Tests 2 07/03/21 06:43: Nucleated Red Blood Cells % (auto) 0.0, Anion Gap 8, Glomerular Filtration Rate 34.1L, Calcium Level 8.5L, Phosphorus Level 2.9#, Magnesium Level 2.1, Total Bilirubin 1.2H, Aspartate Amino Transf (AST/SGOT) 51H, Alanine Aminotransferase (ALT/SGPT) 45, Alkaline Phosphatase 35L, Total Protein 7.3, Albumin 2.6L, Albumin/Globulin Ratio 0.6, Lipase 1174H CBC/BMP Laboratory Tests 07/03/21 06:43 ALBERTO NOWAK M.D. Jul 03, 2021 17:16
[2021-07-03] MEDS: LR 1,000 ML IV SCH (19:40)
[2021-07-03 20:00] VITALS: BP 156/75
[2021-07-04] MEDS: LR 1,000 ML IV SCH (04:03)
[2021-07-04] MEDS: HEPARIN SOD (PORCINE) 5000UNITS/ML 1ML VIAL/SYRINGE SC SCH ×2 (04:04→14:00)
[2021-07-04 06:00] VITALS: BP 149/89
[2021-07-04] MEDS: DOCUSATE SODIUM 100MG CAPSULE PO SCH (08:08)
[2021-07-04 10:36] LABS: ALBUMIN 2.6 GM/DL (3.2-5.2); BILIRUBIN,TOTAL 1.3 MG/DL (0.2-1.0); CALCIUM LEVEL 8.8 MG/DL (8.8-10.2); CREATININE FOR GFR 1.79 MG/DL (0.70-1.30); GLOMERULAR FILTRATION RATE 40.5 (>49); PHOSPHORUS LEVEL 2.9 MG/DL (2.5-4.9); POTASSIUM SERUM 4.1 MEQ/L (3.5-5.1); TOTAL PROTEIN 7.2 GM/DL (6.4-8.2)
--- NOTE | 2021-07-04 13:53 | DS.PDOC ---
Discharge Summary General Date of Admission Jul 01, 2021 at 19:32 Date of Discharge 07/04/21 Discharge Summary DISCHARGE DIAGNOSES: 1. Electrolyte abnormality 2. Acute on chronic kidney disease 3. Covid COMPLICATIONS/CHIEF COMPLAINT: Abnormal Labs. Patient refused monoclonal antibodies. DISCHARGE MEDICATIONS: Please see below. ALLERGIES: Please see below. PHYSICAL EXAMINATION ON DISCHARGE: VITAL SIGNS: Please see below. General: Lying in bed, no acute distress Head/Neck/Throat: Trachea midline, mucous membranes moist Eyes: Sclera anicteric, PERRLA Thorax: Normal respiratory effort on room air, lungs clear to auscultation bilaterally, no wheezes/rales/rhonchi Cardiovascular: Normal rate, regular rhythm, normal S1, S2; no S3, S4, rubs/gallops/murmurs Abdomen: Bowel sounds present, soft/nontender/nondistended Genitourinary: No CVA tenderness, no Noriega in place Musculoskeletal: Moving all extremities, no edema Skin: Warm, dry Neurologic: AAOx3, speech fluent and goal-directed, no focal deficits, grossly intact LABORATORY DATA: Please see below. IMAGING: CT ABD & PELVIS W/O CONTRAST FINDINGS: Lungs: Bibasilar atelectasis. Liver: Normal. No mass. Gallbladder and bile ducts: Normal. No calcified stones. No ductal dilation. Pancreas: Normal. No ductal dilation. Spleen: Normal. No splenomegaly. Adrenal glands: Normal. No mass. Kidneys and ureters: 4.2 cm simple cyst right kidney. No follow-up suggested. No hydronephrosis. Stomach and bowel: Mild diverticulosis is present in the distal colon. No diverticulitis. Appendix: No evidence of appendicitis. Intraperitoneal space: Unremarkable. No free air. No significant fluid collection. Vasculature: Unremarkable. No abdominal aortic aneurysm. Lymph nodes: Unremarkable. No enlarged lymph nodes. Urinary bladder: Unremarkable as visualized. Reproductive: The prostate gland demonstrates mild hyperplasia. Bones/joints: Small sclerotic focus left 5th rib. Retrolisthesis of L5 with respect L4 and S1. Moderate to severe central spinal stenosis L4-L5. Bulging annulus L5-S1 without spinal stenosis. Soft tissues: There is a small umbilical hernia. There is no evidence of incarceration. IMPRESSION: 1. Mild prostatic hyperplasia. 2. Mild diverticulosis is present in the distal colon. No diverticulitis. 3. Simple cyst right kidney. Otherwise unremarkable. No hydronephrosis. PROGNOSIS: Good ACTIVITY: As tolerated DIET: Regular diet DISCHARGE INSTRUCTIONS: 1. Follow-up with primary care physician as well as ferry terminal agent within 5 to 7 days. TIME SPENT ON DISCHARGE: 30 minutes. Vital Signs/I&Os Vital Signs Date Time Temp Pulse Resp B/P (MAP) Pulse Ox O2 Delivery O2 Flow Rate FiO2 07/04/21 06:00 99.9 66 18 149/89 (109) 99 Room Air I&O- Last 24 Hours up to 6 AM 07/04/21 06:00 Intake Total 3030 ml Output Total 1550 ml Balance 1480 ml Laboratory Data Labs 24H Laboratory Tests 2 07/04/21 09:31: Anion Gap 8, Glomerular Filtration Rate 40.5L, Calcium Level 8.8, Phosphorus Level 2.9, Magnesium Level 2.0, Total Bilirubin 1.3H, Aspartate Amino Transf (AST/SGOT) 65H, Alanine Aminotransferase (ALT/SGPT) 48, Alkaline Phosphatase 35L, Total Protein 7.2, Albumin 2.6L, Albumin/Globulin Ratio 0.6, Lipase 1108H CBC/BMP Laboratory Tests 07/04/21 09:31 Discharge Medications Scheduled Amlodipine Besylate (Amlodipine Besylate) 5 Mg Tablet, 5 MG PO DAILY, (Reported) Cholecalciferol (Vitamin D3) (Vitamin D3) 50 Mcg Capsule, 50 MCG PO DAILY, (Reported) Hydrochlorothiazide (Hydrochlorothiazide) 25 Mg Tablet, 12.5 MG PO DAILY, (Reported) Allergies Coded Allergies: No Known Allergies (Unverified , 04/28/21) ALBERTO NOWAK M.D. Jul 04, 2021 13:53
== END 2021-07-04 14:55 | disposition home or self-care (01) | DRG 422 ==
LOC: M ED 15:30 → OBSVTOIN 19:32 → M ED INP 19:32 → ENRESERV 21:58 → M 4MAIN 22:07 → ENRESERV 22:27
PROVIDERS: ADMIT Family Medicine; ATTEND Family Medicine
DX: E87.6 Hypokalemia (principal); U07.1 COVID-19; C61 Malignant neoplasm of prostate; N18.30 Chronic kidney disease, stage 3 unspecified; I12.9 Hypertensive chronic kidney disease with stage 1 through stage 4 chronic kidney disease, or unspecified chronic kidney disease; E86.0 Dehydration; R74.01 Elevation of levels of liver transaminase levels; N40.0 Benign prostatic hyperplasia without lower urinary tract symptoms; Z79.899 Other long term (current) drug therapy

== ENCOUNTER → 2021-07-09 | Outpatient (CLI) | payer BC, OTHER ==
[~2021-07-09] MED LIST changes: +VITA200016 PO; +eligard SUBQ
[2021-07-09 10:27] LABS: BASO # 0.1 10^3/uL (0.0-0.2); BASO % 0.6 % (0.0-1.0); EOS # 0.1 10^3/uL (0.0-0.5); EOS % 1.2 % (0.0-3.0); HEMATOCRIT 40.1 % (42.0-52.0); HEMOGLOBIN 13.9 g/dl (13.5-17.5); LYMPH # 2.1 10^3/uL (1.5-5.0); LYMPH % 20.8 % (24.0-44.0); MEAN CORPUSCULAR HEMOGLOBIN 31.7 pg (27.0-33.0); MEAN CORPUSCULAR HGB CONC 34.7 g/dl (32.0-36.5); MEAN CORPUSCULAR VOLUME 91.6 fl (80.0-96.0); MONO # 0.8 10^3/uL (0.0-0.8); MONO % 8.2 % (2.0-8.0); NEUTROPHILS # 6.8 10^3/uL (1.5-8.5); NEUTROPHILS % 68.5 % (36.0-66.0); PLATELET COUNT, AUTOMATED 405 10^3/uL (150-450); RED BLOOD COUNT 4.38 10^6/uL (4.30-6.10); WHITE BLOOD COUNT 9.9 10^3/uL (4.0-10.0)
[2021-07-09 11:22] LABS: ALBUMIN 2.6 GM/DL (3.2-5.2); BILIRUBIN,TOTAL 0.9 MG/DL (0.2-1.0); CALCIUM LEVEL 9.3 MG/DL (8.8-10.2); CREATININE FOR GFR 1.83 MG/DL (0.70-1.30); GLOMERULAR FILTRATION RATE 47.9 (>49); POTASSIUM SERUM 3.7 MEQ/L (3.5-5.1); PROSTATIC SPECIFIC AG MONITOR 5.38 NG/ML (< 4.00); TOTAL PROTEIN 7.6 GM/DL (6.4-8.2)
[2021-07-09 11:30] LABS: TOTAL 25(OH) VITAMIN D 48.7 NG/ML (30.0-100.0)
== END ==
LOC: M LAB 08:52
PROVIDERS: ATTEND Specialist
DX: C61 Malignant neoplasm of prostate (principal)

== ENCOUNTER → 2021-08-21 | Outpatient (REF) | payer OTHER ==
[2021-08-22 11:14] LABS: FOLATE 14.3 NG/ML
== END ==
LOC: M LAB REF 16:45
PROVIDERS: ATTEND Nurse Practitioner Family
DX: D51.9 Vitamin B12 deficiency anemia, unspecified (principal)

== ENCOUNTER → 2021-12-04 | Outpatient (CLI) | payer BC, OTHER | LOC: M PLALAB 15:06 | PROVIDERS: ATTEND Urology | DX: C61 Malignant neoplasm of prostate (principal) ==

== ENCOUNTER → 2022-02-27 | Outpatient (CLI) | payer MEDICARE, OTHER ==
[~2022-02-27] MED LIST changes: +ALLO10TA PO; +COLC0.6T47 PO
== END ==
LOC: M LABSMTC 10:17
PROVIDERS: ATTEND Anesthesiology
DX: Z20.828 Contact with and (suspected) exposure to other viral communicable diseases (principal); Z11.59 Encounter for screening for other viral diseases

== ENCOUNTER 2022-03-04 09:18 | Day surgery (SDC) | payer MEDICARE, BC, OTHER ==
[~2022-03-04] VITALS: Ht 170.2 cm; Wt 80.7 kg
[~2022-03-04 09:18] MED LIST changes: +NS 1,000 ML IV ONE
[2022-03-04] MEDS ORDERED: LIDOCAINE 2% 100MG/5ML SDV (FOR ANES.) As Ordered ONE (11:25)
[2022-03-04] MEDS ORDERED: propofoL 200 MG/20 ML VIAL As Ordered ONE (11:25)
[2022-03-04 12:03] VITALS: BP 134/92
== END 2022-03-04 12:02 | disposition home or self-care (01) ==
LOC: M OPP 09:18
PROVIDERS: ATTEND Surgery
DX: Z12.11 Encounter for screening for malignant neoplasm of colon (principal); Z86.010 Personal history of colon polyps; K63.5 Polyp of colon; K57.30 Diverticulosis of large intestine without perforation or abscess without bleeding; K64.8 Other hemorrhoids; N18.30 Chronic kidney disease, stage 3 unspecified; Z85.46 Personal history of malignant neoplasm of prostate; Z79.899 Other long term (current) drug therapy; Z87.891 Personal history of nicotine dependence

== ENCOUNTER → 2023-02-08 | Outpatient (CLI) | payer MEDICARE, BC, OTHER ==
[~2023-02-08] MED LIST changes: -NS 1,000 ML IV ONE
== END ==
LOC: M LAB 09:55
PROVIDERS: ATTEND Urology
DX: C61 Malignant neoplasm of prostate (principal)

== ENCOUNTER → 2024-05-04 | Outpatient (CLI) | payer MEDICARE, BC, OTHER | LOC: M RAD 13:33 | PROVIDERS: ATTEND Nurse Practitioner Family | DX: N17.9 Acute kidney failure, unspecified (principal); N28.1 Cyst of kidney, acquired ==

== ENCOUNTER → 2024-06-15 | Outpatient (CLI) | payer MEDICARE, BC, OTHER | LOC: M PLALAB 13:17 | PROVIDERS: ATTEND Urology | DX: C61 Malignant neoplasm of prostate (principal) ==

== ENCOUNTER → 2024-10-23 | Outpatient (CLI) | payer MEDICARE, BC ==
[~2024-10-23] MED LIST changes: +AMLO1TAB25; +HYDR12.55; +XTAN40CA PO
== END ==
LOC: M RAD 08:30
PROVIDERS: ATTEND Nurse Practitioner Family
DX: N17.9 Acute kidney failure, unspecified (principal); N13.30 Unspecified hydronephrosis; N28.89 Other specified disorders of kidney and ureter

== ENCOUNTER → 2024-11-01 | Outpatient (CLI) | payer MEDICARE, BC | LOC: M RAD 10:05 | PROVIDERS: ATTEND Urology | DX: N13.30 Unspecified hydronephrosis (principal); N28.1 Cyst of kidney, acquired ==

== ENCOUNTER → 2024-11-21 | Outpatient (CLI) | payer MEDICARE, BC ==
[~2024-11-21] MED LIST changes: +PRED5TA PO
== END ==
LOC: M ONCM 13:36
PROVIDERS: ATTEND Dietitian, Registered
DX: C61 Malignant neoplasm of prostate (principal); Z71.3 Dietary counseling and surveillance; Z68.23 Body mass index [BMI] 23.0-23.9, adult

== ENCOUNTER → 2025-05-17 | Outpatient (CLI) | payer MEDICARE, BC | LOC: M ONCR 10:04 | PROVIDERS: ATTEND General Practice | DX: C79.51 Secondary malignant neoplasm of bone (principal); C61 Malignant neoplasm of prostate; Z79.899 Other long term (current) drug therapy ==

== ENCOUNTER → 2025-05-25 | Outpatient (CLI) | payer MEDICARE, BC | LOC: M RAD 06:59 | PROVIDERS: ATTEND General Practice | DX: C79.51 Secondary malignant neoplasm of bone (principal); C61 Malignant neoplasm of prostate | CPT/HCPCS: 78306; A9503 ==

== ENCOUNTER 2025-05-31 13:49 | Outpatient (RCR) | payer MEDICARE, BC | END 2025-06-03 | LOC: M ONCR 13:49 | PROVIDERS: ATTEND General Practice | DX: Z51.0 Encounter for antineoplastic radiation therapy (principal); C79.51 Secondary malignant neoplasm of bone ==

== ENCOUNTER → 2025-05-31 | Outpatient (CLI) | payer MEDICARE, BC | LOC: M ONCR 10:50 | PROVIDERS: ATTEND General Practice | DX: C79.51 Secondary malignant neoplasm of bone (principal); C61 Malignant neoplasm of prostate; Z79.818 Long term (current) use of other agents affecting estrogen receptors and estrogen levels; Z91.09 Other allergy status, other than to drugs and biological substances; Z79.899 Other long term (current) drug therapy ==

== ENCOUNTER 2025-06-05 09:53 | Outpatient (RCR) | payer MEDICARE, BC ==
[~2025-06-05 09:53] MED LIST changes: -COLC0.6T47 PO; +COLC0.6T53 PO
== END 2025-07-03 ==
LOC: M ONCR 09:53
PROVIDERS: ATTEND General Practice
DX: Z51.0 Encounter for antineoplastic radiation therapy (principal); C61 Malignant neoplasm of prostate; Z53.8 Procedure and treatment not carried out for other reasons

== ENCOUNTER 2025-06-11 12:59 | Outpatient (RCR) | payer MEDICARE, BC | END 2025-07-03 | LOC: M ONCR 12:59 | PROVIDERS: ATTEND General Practice | DX: Z51.0 Encounter for antineoplastic radiation therapy (principal); C79.51 Secondary malignant neoplasm of bone ==

== ENCOUNTER → 2025-07-11 | Outpatient (CLI) | payer MEDICARE, BC | LOC: M ONCR 13:08 | PROVIDERS: ATTEND General Practice | DX: C79.51 Secondary malignant neoplasm of bone (principal); Z92.3 Personal history of irradiation ==